=== PATIENT | female | born 1955 | race Caucasian/White ===

== ENCOUNTER 2022-04-28 01:32 | Emergency (ER) | payer MEDICARE ==
[~2022-04-28] VITALS: Ht 167.6 cm; Wt 91.3 kg
[2022-04-28] VITALS (12 sets, daily range): BP systolic 93–188; BP diastolic 54–97
[~2022-04-28 01:32] MED LIST: AMOX/K CLAV875 M1 PO; AMOXICILLIN500 MG PO; AMOXICILLIN875 MG OR; ASPIRIN EC81 MG PO; BL ADULT ASA81 MG OR; CIPROFLOXACN500 MG OR; CIPROFLOXACN500 MG PO; EPIPEN 2-PAK0.3 MG IM; LEVOTHYROXIN25 MC1 PO; LISINOPRIL5 MG PO; Levaquin OR; MEDROL DOSEPAK4 MG; MELOXICAM7.5 MG PO; NAPROSYN500 MG PO; NITROFURANTN100 M2 PO; NO CURRENT MEDS; OMEPRAZOLE40 MG PO; PHENAZOPYRID200 MG PO; PRILOSEC20 MG PO; PRILOSEC40 MG PO; TRAMADOL HCL50 MG PO; ZITHROMAX250 MG PO
[2022-04-28 02:24] LABS: URINE BILIRUBIN - DIPSTICK NEGATIVE (NEGATIVE); URINE BLOOD DIPSTICK TRACE-INTACT (NEGATIVE); URINE COLOR YELLOW; URINE GLUCOSE - DIPSTICK NEGATIVE (NEGATIVE); URINE KETONE NEGATIVE (NEGATIVE); URINE LEUK ESTERASE NEGATIVE (NEGATIVE); URINE PROTEIN - DIPSTICK NEGATIVE (NEG-TRACE); URINE UROBILINOGEN - DIPSTICK 0.2 E.U./dL (0.2)
[2022-04-28 02:25] LABS: HEMATOCRIT 44.6 % (37.0-47.0); HEMOGLOBIN 14.2 g/dl (12.0-16.0); IMMATURE GRANULOCYTES 0.1 % (0.0-5.0); MEAN CELL VOLUME 96.3 fL CALC (80.0-100.0); MEAN CORPUSCULAR HGB 30.7 pG CALC (26.0-32.0); MEAN CORPUSCULAR HGB CONC 31.8 g/dL CAL (32.0-36.0); NEUT# 4.28 thou/uL (2.00-7.15); RED BLOOD COUNT 4.63 mill/uL (4.20-5.60); RED CELL DISTRI WIDTH 12.7 % (11.5-15.5); URINE NITRITE - DIPSTICK NEGATIVE (Negative)
[2022-04-28 02:42] LABS: ALBUMIN 4.6 g/dL (3.2-5.0); ALKALINE PHOSPHATASE 66 u/l (38-126); ANION GAP 13 (6-22 (CALC)); BILIRUBIN, TOTAL 0.4 mg/dL (0.0-1.4); BUN 16 mg/dL (8-23); BUN/CREATININE RATIO 21 (12-20 (CALC)); CARBON DIOXIDE 29 mmol/l (22-30); CHLORIDE 103 mmol/l (95-108); CREATININE 0.8 mg/dL (0.5-1.0); GFR FOR AFR.AMER. > 60 ML/MIN (>=60 (CALC)); GFR OTHER RACES > 60 ML/MIN (>=60 (CALC)); POTASSIUM 4.5 mmol/l (3.5-5.1); SGOT/AST 29 u/l (9-36); SODIUM 141 mmol/l (137-146); TOTAL PROTEIN 8.1 g/dL (6.3-8.2)
[2022-04-28 02:54] LABS: MYOGLOBIN 24 ng/mL (0 - 62)
[2022-04-28] MEDS ORDERED: LISINOP/HCTZ1 TAB PO (03:46)
== END 2022-04-28 04:06 | disposition home or self-care (01) ==
LOC: ED 01:32
PROVIDERS: Family Medicine
DX: R42 Dizziness and giddiness (principal); H93.13 Tinnitus, bilateral; I10 Essential (primary) hypertension; E78.00 Pure hypercholesterolemia, unspecified

== ENCOUNTER 2024-06-03 11:19 | Emergency (ER) | payer MEDICARE ==
[2024-06-03] VITALS (10 sets, daily range): BP systolic 134–215; BP diastolic 73–118
[~2024-06-03] VITALS: Ht 167.6 cm; Wt 72.0 kg
[~2024-06-03 11:19] MED LIST changes: +LISINOP/HCTZ1 TAB PO
[2024-06-03] MEDS ORDERED: LABETALOL HCL 100 MG/20 ML VIAL IV ONE ×2 (11:50→12:30)
[2024-06-03 12:11] LABS: BASO% 0.4 % (0-3); EOS% 1.7 % (0-8); HEMATOCRIT 44.4 % (37.0-47.0); HEMOGLOBIN 14.4 g/dl (12.0-16.0); IMMATURE GRANULOCYTES 0.2 % (0.0-5.0); LYMPH% 40.3 % (15-41); MEAN CELL VOLUME 94.7 fL CALC (80.0-100.0); MEAN CORPUSCULAR HGB 30.7 pG CALC (26.0-32.0); MEAN CORPUSCULAR HGB CONC 32.4 g/dL CAL (32.0-36.0); NEUT# 4.05 thou/uL (2.00-7.15); NEUT% 48.4 % (42-76); RED BLOOD COUNT 4.69 mill/uL (4.20-5.60); RED CELL DISTRI WIDTH 12.7 % (11.5-15.5)
[2024-06-03 12:27] LABS: ALBUMIN 4.5 g/dL (3.2-5.0); ALKALINE PHOSPHATASE 64 u/l (38-126); ANION GAP 9 (6-22 (CALC)); BILIRUBIN, TOTAL 0.8 mg/dL (0.02-1.3); BUN 20 mg/dL (8-23); BUN/CREATININE RATIO 29 (12-20 (CALC)); CARBON DIOXIDE 28 mmol/l (22-30); CHLORIDE 107 mmol/l (95-108); CREATININE 0.7 mg/dL (0.5-1.0); ESTIMATED GFR 94 ML/MIN (>=90 (CALC)); SGOT/AST 35 u/l (9-36); SODIUM 140 mmol/l (137-146)
[2024-06-03] MEDS ORDERED: NORVASC PO (13:41)
== END 2024-06-03 13:51 | disposition home or self-care (01) ==
LOC: ED 11:19
PROVIDERS: Family Medicine
DX: I10 Essential (primary) hypertension (principal); E78.00 Pure hypercholesterolemia, unspecified

== ENCOUNTER 2024-09-09 06:30 | Day surgery (SDC) | payer MEDICARE ==
[~2024-09-09] VITALS: Ht 167.6 cm; Wt 73.9 kg
[~2024-09-09 06:30] MED LIST changes: +COZAAR50 MG PO; +NORVASC PO
[2024-09-09] MEDS ORDERED: LACTATED RINGER'S 1,000 ML IV ONE (06:50)
[2024-09-09] MEDS ORDERED: FAMOTIDINE 10MG/ML 2ML SDV IV ONE (06:50)
[2024-09-09 08:30] VITALS: BP 134/86
[2024-09-09] MEDS ORDERED: STERILE WATER 3,000 ML IV ONE (10:44)
[2024-09-09] MEDS ORDERED: PROPOFOL 200 MG/20 ML VIAL IV ONE (13:08)
[2024-09-09] MEDS ORDERED: GLYCOPYRROLATE 0.2 MG/ML IV ONE (13:08)
[2024-09-09] MEDS ORDERED: LIDOCAINE HCL 2% 2ML SDV IV ONE (13:08)
== END 2024-09-09 08:37 | disposition home or self-care (01) ==
LOC: ORM 06:30
PROVIDERS: ATTEND Internal Medicine Gastroenterology
PROC: 0DJD8ZZ Inspection of Lower Intestinal Tract, Via Natural or Artificial Opening Endoscopic (ICD-10-PCS; principal; 2024-09-09)
DX: Z12.11 Encounter for screening for malignant neoplasm of colon (principal); K64.8 Other hemorrhoids; E03.9 Hypothyroidism, unspecified